=== PATIENT | male | born 1995 | race African-American/Black ===

== ENCOUNTER 2017-08-29 09:35 | Emergency (ER) | payer SELFPAY ==
[2017-08-29] MEDS ORDERED: PREDNISONE 20 MG TABLET PO ONE (09:49)
--- NOTE | 2017-08-29 10:41 | RADIOLOGY REPORT (SQ) ---
EXAM DESCRIPTION: SOFT TISSUE NECK COMPLETED DATE/TIME: 08/29/2017 10:14 am REASON FOR STUDY: pain COMPARISON: None. NUMBER OF VIEWS: Two views. TECHNIQUE: AP and lateral radiographic image of the soft tissues of the neck. LIMITATIONS: None. FINDINGS: EPIGLOTTIS: Normal. Contour normal. Aryepiglottic folds normal. PREVERTEBRAL SOFT TISSUES: Normal. No soft tissue swelling. SUBGLOTTIC AREA: Normal. No narrowing. RETROPHARYNGEAL SPACE: Normal. No soft tissue masses. BONES: No significant findings. LUNG APICES: Normal. OTHER: No radiopaque foreign body. No other significant finding. IMPRESSION: NEGATIVE STUDY OF THE SOFT TISSUES OF THE NECK. TECHNICAL DOCUMENTATION: JOB ID: [id number] [employer]- All Rights Reserved
--- NOTE | 2017-08-29 11:40 | ER Document Report ---
ED ENT - General Chief Complaint: Sore Throat Stated Complaint: BREATHING PROBLEMS Time Seen by Provider: 08/29/17 09:44 Mode of Arrival: Ambulatory Information source: Patient Notes: Patient states he has bilateral throat pain and has noticed that his uvula is swollen. The pain is worse with swallowing and better when he does not swallow. It is constant and moderate. It is a burning sensation. He also has some sensations of shortness of breath. TRAVEL OUTSIDE OF THE [place] IN LAST 30 DAYS: No Past Medical History - General Information source: Patient - Social History Smoking Status: Never Smoker Chew tobacco use (# tins/day): No Frequency of alcohol use: None Drug Abuse: None Family History: Reviewed & Not Pertinent Patient has suicidal ideation: No Patient has homicidal ideation: No Renal/ Medical History: Denies: Hx Peritoneal Dialysis Review of Systems - Review of Systems Constitutional: Chills, Malaise. denies: Fever Cardiovascular: denies: Chest pain, Palpitations Respiratory: Cough, Short of breath Gastrointestinal: denies: Diarrhea, Vomiting -: Yes All other systems reviewed and negative Physical Exam - Vital signs Vitals: Temp Pulse Resp BP Pulse Ox 98.4 F 67 16 134/77 H 100 08/29/17 09:36 08/29/17 09:36 08/29/17 09:36 08/29/17 09:36 08/29/17 09:36 Interpretation: Hypertensive - General General appearance: Appears well, Alert - HEENT Head: Normocephalic, Atraumatic Eyes: Normal Pupils: PERRL Mouth/Lips: Normal Mucous membranes: Moist Pharynx: Erythema, Uvular edema. No: Exudate Neck: Normal - Respiratory Respiratory status: No respiratory distress Chest status: Nontender Breath sounds: Normal Chest palpation: Normal - Cardiovascular Rhythm: Regular Heart sounds: Normal auscultation Murmur: No - Abdominal Inspection: Normal Distension: No distension Bowel sounds: Normal Tenderness: Nontender Organomegaly: No organomegaly - Back Back: Normal, Nontender - Extremities General upper extremity: Normal inspection, Nontender, Normal color, Normal ROM , Normal temperature General lower extremity: Normal inspection, Nontender, Normal color, Normal ROM , Normal temperature, Normal weight bearing. No: Flavia's sign - Neurological Neuro grossly intact: Yes Cognition: Normal Orientation: AAOx4 Armando Coma Scale Eye Opening: Spontaneous Hobson Coma Scale Verbal: Oriented Armando Coma Scale Motor: Obeys Commands Armando Coma Scale Total: 15 Speech: Normal Motor strength normal: LUE, RUE, LLE, RLE Sensory: Normal - Psychological Associated symptoms: Normal affect, Normal mood - Skin Skin Temperature: Warm Skin Moisture: Dry Skin Color: Normal Course - Vital Signs Vital signs: Temp Pulse Resp BP Pulse Ox 98.4 F 67 16 134/77 H 100 08/29/17 09:36 08/29/17 09:36 08/29/17 09:36 08/29/17 09:36 08/29/17 09:36 - Diagnostic Test Radiology reviewed: Image reviewed, Reports reviewed - Lateral soft tissue neck shows no evidence of swelling or edema Discharge - Discharge Clinical Impression: Uvulitis Pharyngitis Qualifiers: Pharyngitis/tonsillitis etiology: other specified organisms Qualified Code(s): J02.8 - Acute pharyngitis due to other specified organisms Condition: Stable Disposition: HOME, SELF-CARE Additional Instructions: Your blood pressure is mildly elevated. Please have this rechecked within 1 week by your doctor. Prescriptions: Amoxicillin 500 mg PO TID #21 capsule Prednisone [Deltasone 20 mg Tablet] 3 tab PO DAILY 5 Days tablet Forms: Elevated Blood Pressure, Return to Work Referrals: [facility] MD [COMMUNITY BASED STAFF] - Follow up as needed
[2017-08-29 12:16] VITALS: BP 118/57
== END 2017-08-29 12:15 | disposition home or self-care (01) ==
LOC: ER 09:35
DX: K12.2 Cellulitis and abscess of mouth (principal); J02.9 Acute pharyngitis, unspecified; R06.02 Shortness of breath; R68.83 Chills (without fever); R53.81 Other malaise; R05 Cough
CPT/HCPCS: 99283; 70360; J7512